=== PATIENT | female | born 1950 | race Caucasian/White ===

== ENCOUNTER 2022-08-23 13:45 | Outpatient (CLI) | payer MEDICARE, SELFPAY ==
--- NOTE | 2022-08-23 13:52 | MM_ITS ---
WS: [email or web address] BILATERAL 3D TOMOSYNTHESIS DIGITAL DIAGNOSTIC MAMMOGRAPHY WITH CAD CLINICAL INFORMATION: HX OF BREAST CA HISTORY: History of RIGHT lumpectomy COMPARISON: None. TECHNIQUE: Bilateral CC, MLO, and ML views. FINDINGS: Scattered fibroglandular densities bilaterally. Benign dystrophic calcifications RIGHT breast. Parenc hymal volume loss RIGHT breast prior RIGHT lumpectomy with parenchymal fibrosis. No suspicious focal mass, asymmetry, calcifications, or architectural distortion. No evidence of pretty gnancy. MM/[place] [id number] IMPRESSION: BI-RADS: 2-Benign FOLLOW UP: 1 Year Follow-up Recommend return to annual diagnostic mammography.
== END 2022-08-23 13:46 | disposition home or self-care (01) ==
LOC: RAD 13:46
PROVIDERS: PCP Registered Nurse; Visit Provider Registered Nurse
DX: Z85.3 Personal history of malignant neoplasm of breast (principal)
CPT/HCPCS: 77062

== ENCOUNTER 2023-09-11 11:29 | Outpatient (CLI) | payer MEDICARE, SELFPAY ==
--- NOTE | 2023-09-11 11:52 | MM_ITS ---
WS: [email or web address] DIAGNOSTIC BILATERAL DIGITAL BREAST TOMOSYNTHESIS MAMMOGRAPHY WITH CAD HISTORY: ANNUAL - HX BR CA COMPARISON: 08/23/2022 TECHNIQUE: Bilateral craniocaudad, mediolateral oblique, and mediolateral views are submitted with to mosbarrington and SM. Computer aided detection utilized. Breast composition: There are scattered areas of fibroglandular density. Prior RIGHT lumpectomy. Brigid ent has known RIGHT breast cancer. There are benign dystrophic calcifications in the residual RIGHT b reast. No mass or recurrent mass identified in the RIGHT breast. LEFT breast is negative. IMPRESSION: MM/[place] [id number] BI-RADS: 2-Benign FOLLOW UP: 1 Year Follow-up
== END 2023-09-11 11:30 | disposition home or self-care (01) ==
PROVIDERS: PCP Registered Nurse; Visit Provider Registered Nurse
DX: Z85.3 Personal history of malignant neoplasm of breast (principal); Z98.890 Other specified postprocedural states; R92.1 Mammographic calcification found on diagnostic imaging of breast
CPT/HCPCS: 77062; G0279

== ENCOUNTER → 2024-11-03 08:18 | Outpatient (BNVA) | payer MEDICARE, SELFPAY | PROVIDERS: PCP Nurse Practitioner Family; Visit Provider Nurse Practitioner Family | DX: E55.9 Vitamin D deficiency, unspecified (principal); I10 Essential (primary) hypertension; E78.2 Mixed hyperlipidemia; E11.9 Type 2 diabetes mellitus without complications | CPT/HCPCS: 80053; 80061; 81003; 82306; 83036; 84443; 85025 ==

== ENCOUNTER → 2025-01-28 08:10 | Outpatient (BNVA) | payer MEDICARE, SELFPAY | PROVIDERS: PCP Nurse Practitioner Family; Visit Provider Nurse Practitioner Family | DX: I10 Essential (primary) hypertension (principal); E78.2 Mixed hyperlipidemia; E11.9 Type 2 diabetes mellitus without complications; Z79.4 Long term (current) use of insulin; E55.9 Vitamin D deficiency, unspecified | CPT/HCPCS: 80053; 81003; 82306; 83036; 85025 ==

== ENCOUNTER → 2025-03-30 10:56 | Outpatient (BNVA) | payer MEDICARE, SELFPAY | PROVIDERS: PCP Nurse Practitioner Family; Visit Provider Nurse Practitioner Family | DX: R07.9 Chest pain, unspecified (principal); F17.200 Nicotine dependence, unspecified, uncomplicated | CPT/HCPCS: 71046 ==

== ENCOUNTER → 2025-04-01 08:32 | Outpatient (BNVA) | payer MEDICARE, SELFPAY | PROVIDERS: PCP Nurse Practitioner Family; Visit Provider Nurse Practitioner Family | DX: E11.9 Type 2 diabetes mellitus without complications (principal); Z79.4 Long term (current) use of insulin | CPT/HCPCS: 80053; 83036; 85025 ==

== ENCOUNTER → 2025-05-23 08:53 | Outpatient (BNVA) | payer MEDICARE, SELFPAY | PROVIDERS: PCP Nurse Practitioner Family; Visit Provider Nurse Practitioner Family | DX: Z96.643 Presence of artificial hip joint, bilateral (principal); M19.09 Primary osteoarthritis, other specified site | CPT/HCPCS: 73523 ==

== ENCOUNTER → 2025-06-27 09:28 | Outpatient (BNVA) | payer MEDICARE, SELFPAY | PROVIDERS: PCP Nurse Practitioner Family; Visit Provider Anesthesiology Pain Medicine | DX: M54.9 Dorsalgia, unspecified (principal) | CPT/HCPCS: 99213 ==

== ENCOUNTER 2025-06-29 11:03 | Outpatient (CLI) | payer MEDICARE, SELFPAY ==
--- NOTE | 2025-06-29 11:10 | XR_ITS ---
WS: [email or web address] Lumbar spine, 5 views including both obliques, 06/29/2025 Clinical Data: M54.50 - Low back pain, unspecified Comparison: None. Findings: No compression fractures or subluxation is seen. There is disc narrowing at all levels from L2-L3 through L5-S1 with accompanying osteophytes at all lumbar vertebral bodies. The oblique images show no spondylolysis. There is a gentle levoscoliosis. There is facet joint arthritis from L3-L4 through L5-S1. The transverse processes and SI joints are normal. There is calcification in the wall of the abdominal aorta but no aneurysm. There are bilateral hip arthroplasties. XR/XR lumbar spine min 4V [id number] Impression: 1. Multilevel disc narrowing, osteoarthritis and facet joint arthritis. 2. No spondylolysis on oblique images. 3. Levoscoliosis.
--- NOTE | 2025-06-29 11:45 | MR_ITS ---
WS: [email or web address] MRI LUMBAR SPINE NONCONTRAST HISTORY: M54.16 - Radiculopathy, lumbar region COMPARISON: Radiograph 06/29/2025 TECHNIQUE: Sagittal and axial multisequence imaging is submitted. Mild increase in thoracic kyphosis. LEFT curvature lumbar spine. Disc spaces are narrowed. 3 mm anterolisthesis of L3. No acute fracture or marrow edema. Disc spaces are narrowed and desiccated. Most significant narrowing at L3-4 and L4-5. Conus terminates normally at L1-2 disc level. L1-L2: Mild bilateral facet joint arthropathy and ligamentum flavum hypertrophy. No stenosis. L2-L3: Diffuse mild annular disc bulging with effacement of ventral CSF and narrowing of the subarticular recesses. Very small shallow bilateral foraminal disc protrusions. Moderate ligamentum flavum and facet arthritis. There is mild central and bilateral subarticular recess stenosis. L3-L4: Diffuse disc bulging with osteophytic ridging. Ligamentum flavum and facet arthritis is at least moderate with encroachment upon the thecal sac. Thecal sac is deformed by facet arthropathy encroachment. Small foraminal disc osteophyte complexes. Mild to moderate central with bilateral subarticular recess encroachment. Minimal narrowing of the RIGHT foramen. Disc contact is slightly greatest on the traversing RIGHT L4 nerve root. L4-L5: Diffuse osteophytic ridging. Disc osteophyte complex centrally effacing ventral CSF. Moderate facet joint arthropathy. Slightly greater disc osteophyte contact on the traversing LEFT L5 nerve root. L5-S1: Mild osteophytic ridging and disc bulging. Broad-based LEFT paracentral and foraminal disc osteophyte complex encroaching and displacing the LEFT S1 nerve root and extending into the foramen with contact on the exiting LEFT L5 nerve root. There is a smaller disc osteophyte complex on the RIGHT also contacting the RIGHT S1 nerve root. Bilateral subarticular recess and foraminal stenosis. Normal paravertebral soft tissues. MR/MR lumbar spine wo con* [id number] IMPRESSION: 1. Degenerative levoscoliosis lumbar spine. Moderate spondylosis. 2. Multilevel areas of stenosis due to combination of disc, osteophytosis and facet arthropathy. 3. L3-4: Moderate facet joint arthropathy encroaching upon the thecal sac. Mil d to moderate central with bilateral subarticular recess encroachment. Mild RIG HT foraminal stenosis. Disc contact greatest on the traversing RIGHT L4 nerve r oot. 4. L4-5: Central disc osteophyte complex effacing CSF. Disc osteophyte contact greatest on the traversing LEFT L5 nerve root. Moderate facet joint arthropath y. 5. L5-S1: Broad-based LEFT paracentral and foraminal disc osteophyte complex c ontacting the LEFT S1 nerve root. Lesser contact on the exiting LEFT L5 nerve r oot. Smaller disc osteophyte contacting the RIGHT S1 nerve root. Mild subarticu lar recess and foraminal stenosis. 6. L2-3: Mild central and bilateral subarticular recess stenosis.
== END 2025-06-29 11:04 | disposition home or self-care (01) ==
PROVIDERS: PCP Nurse Practitioner Family; Visit Provider Anesthesiology Pain Medicine
DX: M54.16 Radiculopathy, lumbar region (principal); M54.50 Low back pain, unspecified
CPT/HCPCS: 72110; 72148

== ENCOUNTER → 2025-07-05 08:59 | Outpatient (BNVA) | payer MEDICARE, SELFPAY | PROVIDERS: PCP Nurse Practitioner Family; Visit Provider Nurse Practitioner Family | DX: I10 Essential (primary) hypertension (principal); E11.9 Type 2 diabetes mellitus without complications; Z79.4 Long term (current) use of insulin; E78.2 Mixed hyperlipidemia | CPT/HCPCS: 80053; 80061; 81003; 83036; 85025 ==

== ENCOUNTER → 2025-07-18 10:07 | Outpatient (BNVA) | payer OTHER, SELFPAY | PROVIDERS: PCP Nurse Practitioner Family; Visit Provider Anesthesiology Pain Medicine | DX: M54.9 Dorsalgia, unspecified (principal); F17.200 Nicotine dependence, unspecified, uncomplicated | CPT/HCPCS: 99214 ==

== ENCOUNTER → 2025-07-26 14:32 | Outpatient (BNVA) | payer OTHER, SELFPAY | PROVIDERS: PCP Nurse Practitioner Family; Visit Provider Anesthesiology Pain Medicine | DX: M47.816 Spondylosis without myelopathy or radiculopathy, lumbar region (principal) | CPT/HCPCS: 64493; 64494; 64495; J3490; J9999 ==

== ENCOUNTER → 2025-08-09 08:20 | Outpatient (BNVA) | payer OTHER, MEDICAID, SELFPAY | PROVIDERS: PCP Nurse Practitioner Family; Visit Provider Anesthesiology Pain Medicine | DX: M54.9 Dorsalgia, unspecified (principal) | CPT/HCPCS: 99214 ==

== ENCOUNTER → 2025-08-24 13:09 | Outpatient (BNVA) | payer OTHER, MEDICAID, SELFPAY | PROVIDERS: PCP Nurse Practitioner Family; Visit Provider Anesthesiology Pain Medicine | DX: M47.816 Spondylosis without myelopathy or radiculopathy, lumbar region (principal) | CPT/HCPCS: 64493; 64494; 64495; J3490; J9999 ==

== ENCOUNTER → 2025-08-29 08:59 | Outpatient (BNVA) | payer OTHER, MEDICAID, SELFPAY | PROVIDERS: PCP Nurse Practitioner Family; Visit Provider Anesthesiology Pain Medicine | DX: M54.9 Dorsalgia, unspecified (principal) | CPT/HCPCS: 99214 ==

== ENCOUNTER 2025-08-31 12:10 | Outpatient (CLI) | payer OTHER, MEDICAID, SELFPAY ==
--- NOTE | 2025-08-31 12:15 | USCV_ITS ---
Chaz Barlow Age: 75 Gender: F : 1950 Exam Date: 08/31/2025 13:07 Ordering Phys: GHISLAINE Gale APRN Technologist: JANET [place] [facility] [place]: [place] Risk Factors: Previous Vascular Surgery: Right Brachial BP: / Left Brachial BP: / Right Left Velocity (cm/s) Spectral Plaque Velocity (cm/s) Spectral Plaque Syst/Diast Broadening Syst/Diast Broadening 63.40/ 8.90 Prox CCA 88.60 / 17.10 65.90/ 10.20 Mid CCA 84.20 / 16.30 68.50/ 14.10 Distal CCA 73.10 / 12.40 139.80/18.30 Prox ICA 118.10/ 17.10 109.00/19.90 Mid ICA 55.50 / 14.60 63.10/ 15.70 Distal ICA 81.50 / 23.50 180.70 ECA 155.10 2.00 ICA/CCA 1.60 Antegrade Vertebral Antegrade 64.40/ 14.20 cm/s 31.20/ 10.90 cm/s Tri Subclavian Tri 140.3 183.7 0 0 FINDINGS Comparison: none available. Mild elevation of systolic velocities in the ICA's, right greater than left. Irregular calcified plaque in the bifurcations. Antegrade vertebral arteries. CONCLUSIONS Bilateral ICA stenosis less than 50%. Slightly greater stensis on the right. Bilateral calcified plaque in the bifurcations. Dr. Nadia Agee DO (Electronically Signed) Final Date: 31 August 2025 14:51 S
--- NOTE | 2025-08-31 13:00 | MM_ITS ---
WS: [email or web address] BILATERAL 3D TOMOSYNTHESIS DIGITAL DIAGNOSTIC MAMMOGRAPHY WITH CAD CLINICAL INFORMATION: Z12.31 - Encounter for screening mammogram for malignant ... HISTORY: RIGHT lumpectomy COMPARISON: 2022 TECHNIQUE: Bilateral CC, MLO, and ML views. FINDINGS: Scattered fibroglandular densities bilaterally. Dystrophic calcifications RIGHT breast. Prior RIGHT lumpectomy. Volume loss RIGHT breast. No suspicious focal mass, asymmetry, calcifications, or architectural distortion. No evidence of malignancy. MM/MM diag tomosynthesis [id number] IMPRESSION: DENSITY: There are scattered areas of fibroglandular density. BI-RADS: 2 - Benign. FOLLOW UP: 1 Year Follow-up Recommend return to annual diagnostic mammography.
--- NOTE | 2025-08-31 13:30 | XR_ITS ---
WS: [email or web address] DEXA (DUAL ENERGY X-RAY ABSORPTIOMETRY) Bone mineral density was performed using a [employer] biomedical machine. HISTORY: M81.0 - Age-related osteoporosis without current patholog... COMPARISON: None available. Lumbar spine BMD (L1-L4): 1.749 g/cm2 T score: 4.7 Z score: 6.0 Left forearm BMD: 0.786 g/cm2. T score: -1.0 Z score: 1.1 XR/XR DEXA axial skeleton* [id number] IMPRESSION: Normal BONE MINERAL DENSITY based upon the WHO classification for females.
== END 2025-08-31 12:11 | disposition home or self-care (01) ==
LOC: RAD 12:11
PROVIDERS: PCP Nurse Practitioner Family; Visit Provider Nurse Practitioner Family
DX: Z12.31 Encounter for screening mammogram for malignant neoplasm of breast (principal); Z13.820 Encounter for screening for osteoporosis; M81.0 Age-related osteoporosis without current pathological fracture; R92.323 Mammographic fibroglandular density, bilateral breasts; R92.1 Mammographic calcification found on diagnostic imaging of breast; Z90.11 Acquired absence of right breast and nipple; N64.89 Other specified disorders of breast; I25.84 Coronary atherosclerosis due to calcified coronary lesion
CPT/HCPCS: 77062; 77080; 93880; G0279

== ENCOUNTER → 2025-09-06 13:55 | Outpatient (BNVA) | payer OTHER, MEDICAID, SELFPAY | PROVIDERS: PCP Nurse Practitioner Family; Visit Provider Anesthesiology Pain Medicine | DX: M47.816 Spondylosis without myelopathy or radiculopathy, lumbar region (principal); E11.9 Type 2 diabetes mellitus without complications | CPT/HCPCS: 64635; 64636; J1100; J9999 ==

== ENCOUNTER → 2025-09-20 13:34 | Outpatient (BNVA) | payer OTHER, MEDICAID, SELFPAY | PROVIDERS: PCP Nurse Practitioner Family; Visit Provider Anesthesiology Pain Medicine | DX: M47.816 Spondylosis without myelopathy or radiculopathy, lumbar region (principal) | CPT/HCPCS: 64635; 64636; J1100; J9999 ==

== ENCOUNTER → 2025-10-04 09:00 | Outpatient (BNVA) | payer OTHER, SELFPAY | PROVIDERS: PCP Nurse Practitioner Family; Visit Provider Anesthesiology Pain Medicine | DX: M47.812 Spondylosis without myelopathy or radiculopathy, cervical region (principal) | CPT/HCPCS: 99214 ==

== ENCOUNTER → 2025-10-26 09:43 | Outpatient (BNVA) | payer OTHER, SELFPAY | PROVIDERS: PCP Nurse Practitioner Family; Visit Provider Nurse Practitioner Family | DX: E11.9 Type 2 diabetes mellitus without complications (principal); Z79.4 Long term (current) use of insulin | CPT/HCPCS: 80053; 81003; 83036; 85025 ==

== ENCOUNTER → 2025-11-03 11:45 | Outpatient (BNVA) | payer OTHER, SELFPAY | PROVIDERS: PCP Nurse Practitioner Family; Visit Provider Nurse Practitioner Family | DX: I10 Essential (primary) hypertension (principal); E55.9 Vitamin D deficiency, unspecified; Z85.3 Personal history of malignant neoplasm of breast | CPT/HCPCS: 80503; 82306; 84443; 85025 ==